=== PATIENT | male | born 1980 | race Caucasian/White ===

== ENCOUNTER 2018-04-19 10:10 | Outpatient (CLI) | payer OTHER | END 2018-04-19 21:01 | disposition home or self-care (01) | LOC: SMI 10:10 | DX: M47.814 Spondylosis without myelopathy or radiculopathy, thoracic region (principal); M51.36 Other intervertebral disc degeneration, lumbar region; M51.27 Other intervertebral disc displacement, lumbosacral region | CPT/HCPCS: 72146; 72148 ==